=== PATIENT | female | born 1975 | race Hispanic/Latino ===

== ENCOUNTER 2019-01-28 10:33 | Outpatient (CLI) | payer MEDICAID ==
--- NOTE | 2019-01-30 12:44 | Mammography Report ---
DIGITAL SCREENING MAMMOGRAM WITH CAD, 01/28/2019 INDICATION: Baseline screening mammography. TECHNIQUE: Digital bilateral 2D mammography was obtained in the craniocaudal and mediolateral obliq ue projections. This examination was interpreted with the benefit of Computer-Aided Detection analysi s. COMPARISON: None. FINDINGS: Breast Density: The breasts are heterogeneously dense, which may obscure small masses. Left asymmetries and architectural distortion and a left lower inner irregular mass require additiona l imaging. No suspicious calcifications of the left breast. There is no evidence of dominant mass, sullivan spicious calcifications or architectural distortion in the right breast. IMPRESSION: Left asymmetries and a left lower inner mass requiring additional imaging. Recommend reca ll for left spot magnification views and left breast ultrasound. Follow up recommendation: Special View: Mag Category 0: Incomplete. Needs additional imaging evaluation and/or prior mammograms for comparison. A "normal" or negative report should not discourage follow up or biopsy of a clinically significant f inding. A written summary of these findings will be mailed to the patient. The patient will be entered into a mammography reporting system which will generate a reminder letter for the patient's next appointmen t at the appropriate interval. The [employer] recommends yearly mammograms starting at age 40 and continuing as l carol as a woman is in good health. Breast MRI is recommended for women with an approximate 20-25% or greater lifetime risk of breast cancer, including women with a strong family history of breast or ova cherie cancer or who have been treated for Hodgkin's disease. Signer Name: Yaron Davila MD Signed: 01/30/2019 12:40 PM Workstation Name: [id number]
== END 2019-01-28 10:34 | disposition home or self-care (01) ==
LOC: SPVWC 10:33
PROVIDERS: ATTEND Hospitalist
DX: Z12.31 Encounter for screening mammogram for malignant neoplasm of breast (principal)
CPT/HCPCS: 77067

== ENCOUNTER 2019-02-11 08:46 | Outpatient (CLI) | payer MEDICAID ==
--- NOTE | 2019-02-11 11:16 | Mammography Report ---
LEFT DIGITAL DIAGNOSTIC MAMMOGRAM WITH CAD -- 02/11/2019 LEFT LIMITED BREAST ULTRASOUND INDICATION: Recalled for asymmetries identified at screening. ABNORMAL MAMMOGRM TECHNIQUE: Digital left mammographic imaging was performed. Limited ultrasound was performed. This e xamination was interpreted with the benefit of Computer-Aided Detection (CAD) analysis. COMPARISON: 01/28/2019 FINDINGS: Breast Density: The breast is heterogeneously dense, which may obscure small masses. MAMMOGRAPHIC FINDINGS: 2 asymmetries demonstrates satisfactory effacement. However, a low-density irr egular lower inner mass persists on spot images. ULTRASOUND FINDINGS: Targeted ultrasound evaluation was performed of the area of interest. Ultrasou nd of the lower inner left breast demonstrated a superficial predominantly hyperechoic irregular mass contiguous to the skin at 8:00 6 cm from the nipple. It measures 2.7 x 1.5 x 0.7 cm and correlates w ith the mammographic mass. The overlying skin is blue-tinged and the patient's stated that it had bee n that way for years. IMPRESSION: A benign superficial mass of the left breast at 8:00 6 cm from the nipple. The skin hernandez es suggest that this is probably a benign hemangioma. No suspicious findings. Follow up recommendation: Routine yearly BI-RADS Category 2: Benign. A "normal" or negative report should not discourage follow up or biopsy of a clinically significant f inding. A written summary of these findings will be mailed to the patient. The patient will be entered into a mammography reporting system which will generate a reminder letter for the patient's next appointmen t at the appropriate interval. According to the [employer], yearly mammograms are recommended starting at age 40 and continuing as long as a woman is in good health. Breast MRI is recommended for women with an flash roximately 20-25% or greater lifetime risk of breast cancer, including women with a strong family his tory of breast or ovarian cancer and women who have been treated for Hodgkin's disease. Signer Name: Yaron Davila MD Signed: 02/11/2019 11:11 AM Workstation Name: [id number]
--- NOTE | 2019-02-11 11:33 | Ultrasound Report ---
LEFT DIGITAL DIAGNOSTIC MAMMOGRAM WITH CAD -- 02/11/2019 LEFT LIMITED BREAST ULTRASOUND INDICATION: Recalled for asymmetries identified at screening. ABNORMAL MAMMOGRM TECHNIQUE: Digital left mammographic imaging was performed. Limited ultrasound was performed. This ex amination was interpreted with the benefit of Computer-Aided Detection (CAD) analysis. COMPARISON: 01/28/2019 FINDINGS: Breast Density: The breast is heterogeneously dense, which may obscure small masses. MAMMOGRAPHIC FINDINGS: 2 asymmetries demonstrates satisfactory effacement. However, a low-density irr egular lower inner mass persists on spot images. ULTRASOUND FINDINGS: Targeted ultrasound evaluation was performed of the area of interest. Ultrasound of the lower inner left breast demonstrated a superficial predominantly hyperechoic irregular mass c ontiguous to the skin at 8:00 6 cm from the nipple. It measures 2.7 x 1.5 x 0.7 cm and correlates wit h the mammographic mass. The overlying skin is blue-tinged and the patient's stated that it had been that way for years. IMPRESSION: A benign superficial mass of the left breast at 8:00 6 cm from the nipple. The skin hernandez es suggest that this is probably a benign hemangioma. No suspicious findings. Follow up recommendation: Routine yearly BI-RADS Category 2: Benign. A "normal" or negative report should not discourage follow up or biopsy of a clinically significant f inding. A written summary of these findings will be mailed to the patient. The patient will be entered into a mammography reporting system which will generate a reminder letter for the patient's next appointmen t at the appropriate interval. According to the [employer], yearly mammograms are recommended starting at age 40 and continuing as long as a woman is in good health. Breast MRI is recommended for women with an appr oximately 20-25% or greater lifetime risk of breast cancer, including women with a strong family hist ory of breast or ovarian cancer and women who have been treated for Hodgkin's disease. Signer Name: Yaron Davila MD Signed: 02/11/2019 11:29 AM Workstation Name: [id number]
== END 2019-02-11 08:47 | disposition home or self-care (01) ==
LOC: SPVWC 08:46
PROVIDERS: ATTEND Hospitalist
DX: N63.24 Unspecified lump in the left breast, lower inner quadrant (principal)